=== PATIENT | male | born 1970 | race Caucasian/White ===

== ENCOUNTER 2020-07-25 13:23 | Emergency (ER) | payer MEDICAID, SELFPAY ==
--- NOTE | ~2020-07-25 | XR_ITS ---
EXAMINATION: XR chest 2V EXAM DATE: 07/25/2020 14:00 INDICATION: Cough for 2 1/2 weeks. Weight loss. TECHNIQUE: Frontal and lateral projections of the chest obtained and reviewed. There is no prior nando dy for comparison. FINDINGS: The lungs are clear. There are no pleural effusions. The cardiomediastinal silhouette is within normal limits. There is no pneumothorax suspected. The bones and soft tissues are unremarkab le. IMPRESSION: No acute cardiopulmonary findings. Reviewed, dictated and finalized at location B. [facility]
[2020-07-25 13:37] VITALS: BP 122/92; PULSE 88; RESP 18; TEMP 37.1; O2SAT 98
--- NOTE | 2020-07-25 14:01 | ED.URI ---
HPI - URI/Sore Throat General Chief Complaint: Upper Respiratory Infection Stated Complaint: COLD/FLU SX Time Seen by Provider: 07/25/20 13:50 Source: patient and RN notes reviewed Mode of arrival: ambulatory Limitations: no limitations History of Present Illness HPI Narrative: Patient presents today complaining of a 2 to 3-week history of dry cough with chest pressure, shortness of breath, fatigue, decreased appetite, chills and sweats, sore throat. Fever, congestion, rhinorrhea. Denies exposure to COVID-19. Within the last couple of days started taking some [id number] cough medicine. He stopped smoking approximately 30 years ago. Denies history of asthma or COPD. MD elicited complaint: cough Related Data Allergies Allergy/AdvReac Type Severity Reaction Status Date / Time No Known Allergies Allergy Verified 07/25/20 13:51 Review of Systems Review of Systems: Narrative: CONSTITUTIONAL: Denies body aches, fever. + Chills, sweats, fatigue EYES: Denies visual changes, redness, or discharge. ENT: Denies rhinorrhea, congestion, or otalgia.+ Sore throat CARDIOVASCULAR: Denies chest pain, palpitations, or edema. RESPIRATORY: + Cough, shortness of breath, chest pressure. GASTROINTESTINAL: Denies abdominal pain, nausea, vomiting, or diarrhea.+ Decreased appetite GENITOURINARY: Denies dysuria or hematuria. SKIN: Denies rash, itching, or wounds. MUSCULOSKELETAL: Denies back pain, joint pain, or myalgia. NEUROLOGIC: Denies headache, numbness, tingling, or weakness. PSYCH: Denies depression or anxiety. PMFSH Comments At time of signature, I have reviewed and agree with nursing past medical, surgical, social and family history unless otherwise noted. Please see nursing chart for further information. There is no relevant family history pertinent to the presenting complaint Exam Narrative: Exam Narrative: GENERAL: Well-appearing, well-nourished, and in no acute distress. HEAD: Normocephalic, atraumatic. EYES: EOMI. No redness or drainage. Conjunctivae normal. ENT: Mucous membranes pink and moist. Nares clear. No rhinorrhea. TMs normal bilaterally. Throat normal. Uvula midline. NECK: Normal AROM. Supple. No lymphadenopathy. CHEST: No respiratory distress. Decreased aeration throughout, otherwise clear HEART: Regular rate and rhythm. No murmur appreciated. Normal peripheral pulses. EXTREMITIES: Normal range of motion. No edema. SKIN: Warm, dry, no rash. Capillary refill normal. Normal skin turgor. NEURO: No focal deficits. Alert and oriented x3. Gait steady. PSYCH: Normal affect. No signs of depression or anxiety. Course Vital Signs Vital signs: Vital Signs Temperature 98.8 F 07/25/20 13:37 Pulse Rate 88 07/25/20 13:37 Respiratory Rate 18 07/25/20 13:37 Blood Pressure 122/92 H 07/25/20 13:37 Pulse Oximetry 98 07/25/20 13:37 Temperature 98.8 F 07/25/20 13:37 Pulse Rate 88 07/25/20 13:37 Respiratory Rate 18 07/25/20 13:37 Blood Pressure 122/92 H 07/25/20 13:37 Pulse Oximetry 98 07/25/20 13:37 Reviewed. Pt has been instructed to follow up with his PCP regarding his elevated blood pressure today. MDM - URI/Sore Throat Differential Diagnosis Differential diagnosis: Likely upper respiratory infection, otitis media, viral infection, bronchitis, pharyngitis and other (Pneumonia) Critical Care Time Critical Care Time Critical Care Time: No Discharge Plan Discharge Clinical Impression: Bronchitis Patient Disposition: Home, Self-Care Condition: Stable Instructions: Acute Bronchitis (ED) Additional Instructions: Your chest x-ray is negative for pneumonia today. Please use the prednisone, Tessalon Perles, and albuterol inhaler as directed. Follow-up with your PCP in 1 week if symptoms are not improving, or go to the ER if symptoms worsen. Make sure you are resting and staying hydrated. Your blood pressure was elevated above 120/80 today at Urgent Care. This puts you
== END 2020-07-25 14:30 | disposition home or self-care (01) ==
PROVIDERS: Emergency Provider Nurse Practitioner
DX: J40 Bronchitis, not specified as acute or chronic (principal)
CPT/HCPCS: 71046; 99213; G0463